=== PATIENT | male | born 1940 | race Caucasian/White ===

== ENCOUNTER 2017-12-31 21:47 | Emergency (ER) | payer MEDICARE, BC ==
[~2017-12-31] VITALS: Ht 167.6 cm; Wt 65.3 kg
[~2017-12-31 21:47] MED LIST: ACETAMINOPHEN325 M1 PO; ASA81BEC PO; ASPIRIN 81 MG; AVADART; AVELOX 400 MG400 MG PO; AVODART; AVODART0.5 MG PO; CARDIZEM; CARDIZEM CD180 MG; CARDIZEM CD180 MG PO; CO Q-10100 MG PO; COZAAR 25MG TAB25 MG; DEXILANT60 MG PO; FISH OIL; FISH OIL 1,0001 EAC5 PO; HYDROCODON-ACE1 EACH; LASIX 40 MG TAB40 M1 PO; LIVALO1 MG PO; LOPRESSOR 50 MG50 M1; LOPRESSOR25; MENS VITAMIN; NAPROSYN500 MG PO; NASAL SPRAY30 ML; NASALCROM40 MG/1 ML INH; NITROSTAT0.4 MG SL; PACERONE 200 M200 M1; PERCOCET; PLAVIX 75 MG TA75 MG PO; QVAR HFA 880 MCG/UN1 INH; SENOKOT-S1 TA1 PO; SPIRONOLACTONE25 M1 PO; TAMIFLU75 MG PO; THERA-M CAPLET1 EACH PO; TOPROL XL25 MG PO; VITAMINC500 PO; VITCB500GO PO; ZEGERID 40 MG1 EACH PO
[2017-12-31] MEDS ORDERED: [UNRECOGNIZED DRUG - OTHER] (22:01)
[2017-12-31 22:28] LABS: ABSOLUTE BASOPHILS 0.1 thou/uL (0.0-0.2); ABSOLUTE EOSINOPHILS 0.6 thou/uL (0.0-0.7); ABSOLUTE LYMPHOCYTES 1.3 thou/uL (0.8-5.3); ABSOLUTE MONOCYTES 0.7 thou/uL (0.0-1.2); ABSOLUTE NEUTROPHILS 4.5 thou/uL (1.6-8.1); EOSINOPHILS 8.6 %; HEMATOCRIT 44.6 % (42.0-52.0); HEMOGLOBIN 14.7 gm/dL (14.0-18.0); LYMPHOCYTES 17.7 %; MCH 29.9 pg (26.0-34.0); MCHC 32.9 g/dL (28.0-37.0); MCV 90.9 fL (80.0-100.0); MONOCYTES 9.9 %; MPV 10.4 fl. (7.2-11.1); NUCLEATED RBCS 0 /100WBC; PLATELET COUNT* 124 thou/uL (150-400); POLYS 62.8 %; RBC 4.91 mil/uL (4.50-6.00); RDW-CV 13.6 % (10.5-14.5); WBC 7.1 thou/uL (4.0-11.0)
[2017-12-31 22:35] LABS: ANION GAP 10 mmol/L (7-16); BUN 24 mg/dL (7-18); CALCIUM 8.6 mg/dL (8.5-10.1); CHLORIDE 104 mmol/L (98-107); CO2 29 mmol/L (21-32); CREATININE 1.2 mg/dL (0.6-1.3); GLUCOSE 141 mg/dL (70-99); POTASSIUM 4.1 mmol/L (3.5-5.1); SODIUM 143 mmol/L (136-145)
[2017-12-31 22:46] LABS: ALBUMIN 3.4 g/dL (3.4-5.0); ALKALINE PHOSPHATASE 96 U/L (46-116); NT-PRO BRAIN NAT PEPTIDE 128 pg/mL (<300); SGOT 27 U/L (15-37); SGPT 25 U/L (30-65); TOTAL BILIRUBIN 0.3 mg/dL (<0.1-1.0); TOTAL PROTEIN 7.1 g/dL (6.4-8.2); TROPONIN-I LEVEL <0.06 ng/mL (<0.06)
[2017-12-31 23:27] LABS: URINE BILIRUBIN NEGATIVE (Negative); URINE BLOOD NEGATIVE (Negative); URINE CLARITY CLEAR; URINE COLOR YELLOW; URINE GLUCOSE-RANDOM NEGATIVE (Negative); URINE KETONES NEGATIVE (Negative); URINE LEUKOCYTES-REFLEX NEGATIVE (Negative); URINE NITRITE-REFLEX NEGATIVE (Negative); URINE PROTEIN NEGATIVE (Negative); URINE SPECIFIC GRAVITY <= 1.005 (1.005-1.030); URINE UROBILINOGEN 0.2 E.U./dl (0.2-1.0)
[2018-01-01 00:14] VITALS: BP 140/63
--- NOTE | 2018-01-01 10:32 | EKG ---
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: CHAS Cohen : 1940 Requested By: Yoselin Love Order Number: [id number] MD: Oh Yung Measurements Intervals [place] Rate: 72 P: 64 DE: 139 QRS: -67 QRSD: 133 T: 38 QT: 419 QTc: 459 Interpretive Statements Sinus rhythm left anterior fasicular block Left atrial enlargement Right bundle branch block septal infarct, age indeterminate Compared to ECG 03/02/2017 19:49:16 Myocardial infarct finding now present Electronically Signed On 01-01-2018 10:32:09 SIGNALS INTELLIGENCE ANALYST by Oh Yung [email or web address] <ELECTRONICALLY SIGNED> By: Oh Yung MD, [facility] 01/01/18 1032 17 Oh Yung MD, [facility] /EPI
== END 2018-01-01 00:16 | disposition home or self-care (01) ==
LOC: M.ERS 21:47
PROVIDERS: Nurse Practitioner
DX: E86.0 Dehydration (principal); R42 Dizziness and giddiness; E78.5 Hyperlipidemia, unspecified; I10 Essential (primary) hypertension; K21.9 Gastro-esophageal reflux disease without esophagitis; I25.10 Atherosclerotic heart disease of native coronary artery without angina pectoris; Z86.73 Personal history of transient ischemic attack (TIA), and cerebral infarction without residual deficits; Z95.1 Presence of aortocoronary bypass graft; Z88.0 Allergy status to penicillin; Z88.2 Allergy status to sulfonamides; Z88.1 Allergy status to other antibiotic agents; Z88.8 Allergy status to other drugs, medicaments and biological substances; Z95.5 Presence of coronary angioplasty implant and graft; Z85.51 Personal history of malignant neoplasm of bladder

== ENCOUNTER → 2018-02-12 | Outpatient (CLI) | payer MEDICARE, BC ==
[~2018-02-12] MED LIST changes: +[UNRECOGNIZED DRUG - OTHER]
== END ==
LOC: M.ULTRA 08:08
DX: I73.9 Peripheral vascular disease, unspecified (principal); I70.90 Unspecified atherosclerosis; I10 Essential (primary) hypertension; E78.5 Hyperlipidemia, unspecified

== ENCOUNTER → 2018-03-19 | Outpatient (CLI) | payer MEDICARE, BC ==
[2018-03-19 07:28] LABS: HEMATOCRIT 46.2 % (42.0-52.0); HEMOGLOBIN 15.2 gm/dL (14.0-18.0); MCH 29.9 pg (26.0-34.0); MCV 90.8 fL (80.0-100.0); MPV 10.3 fl. (7.2-11.1); RBC 5.08 mil/uL (4.50-6.00); WBC 6.7 thou/uL (4.0-11.0)
[2018-03-19 07:41] LABS: ALBUMIN 3.6 g/dL (3.4-5.0); ALKALINE PHOSPHATASE 85 U/L (46-116); ANION GAP 4 mmol/L (7-16); BUN 16 mg/dL (7-18); CHLORIDE 104 mmol/L (98-107); CHOLESTEROL 110 mg/dL (<200); CO2 32 mmol/L (21-32); CREATININE 1.2 mg/dL (0.6-1.3); GLUCOSE 96 mg/dL (70-99); HDL CHOLESTEROL 51 mg/dL (>40); LDL CHOLESTEROL 43 mg/dL (<100); POTASSIUM 4.1 mmol/L (3.5-5.1); SERUM ASSESSMENT Clear; SGOT 28 U/L (15-37); SGPT 29 U/L (30-65); SODIUM 140 mmol/L (136-145); TC:HDL 2.2 Ratio (Not establshd); TOTAL BILIRUBIN 0.7 mg/dL (<0.1-1.0); TOTAL PROTEIN 7.3 g/dL (6.4-8.2); TRIGLYCERIDE 82 mg/dL (<150); VLDL 16 mg/dL (<40)
== END ==
LOC: M.LAB 07:10
PROVIDERS: Family Medicine
DX: I25.10 Atherosclerotic heart disease of native coronary artery without angina pectoris (principal); E78.5 Hyperlipidemia, unspecified; E78.00 Pure hypercholesterolemia, unspecified

== ENCOUNTER 2018-04-18 04:08 | Emergency (ER) | payer MEDICARE, BC ==
[~2018-04-18] VITALS: Ht 167.6 cm; Wt 62.6 kg
[2018-04-18 04:49] LABS: ABSOLUTE EOSINOPHILS 0.6 thou/uL (0.0-0.7); ABSOLUTE LYMPHOCYTES 1.3 thou/uL (0.8-5.3); ABSOLUTE MONOCYTES 0.7 thou/uL (0.0-1.2); ABSOLUTE NEUTROPHILS 4.7 thou/uL (1.6-8.1); BASOPHILS 0.6 %; EOSINOPHILS 7.7 %; HEMATOCRIT 44.7 % (42.0-52.0); HEMOGLOBIN 14.7 gm/dL (14.0-18.0); MCH 29.9 pg (26.0-34.0); MCV 90.7 fL (80.0-100.0); MONOCYTES 10.1 %; MPV 10.2 fl. (7.2-11.1); NUCLEATED RBCS 0 /100WBC; PLATELET COUNT* 135 thou/uL (150-400); POLYS 63.6 %; RBC 4.92 mil/uL (4.50-6.00); RDW-CV 13.8 % (10.5-14.5); WBC 7.3 thou/uL (4.0-11.0)
[2018-04-18 04:56] LABS: ANION GAP 4 mmol/L (7-16); BUN 21 mg/dL (7-18); CALCIUM 8.7 mg/dL (8.5-10.1); CHLORIDE 106 mmol/L (98-107); CO2 29 mmol/L (21-32); GLUCOSE 99 mg/dL (70-99); POTASSIUM 4.1 mmol/L (3.5-5.1); SODIUM 139 mmol/L (136-145)
[2018-04-18 05:03] LABS: ALBUMIN 3.5 g/dL (3.4-5.0); ALKALINE PHOSPHATASE 101 U/L (46-116); SGOT 24 U/L (15-37); SGPT 22 U/L (30-65); TOTAL BILIRUBIN 0.3 mg/dL (<0.1-1.0); TOTAL PROTEIN 7.1 g/dL (6.4-8.2); TROPONIN-I LEVEL <0.06 ng/mL (<0.06)
[2018-04-18 05:51] VITALS: BP 152/86
--- NOTE | 2018-04-18 14:33 | EKG ---
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: KAYLYN : 1940 Requested By: Hailey Valencia Order Number: [id number] MD: Vincent Davison Measurements Intervals [place] Rate: 69 P: 70 MA: 149 QRS: -65 QRSD: 132 T: 28 QT: 397 QTc: 426 Interpretive Statements Sinus rhythm Possible left atrial enlargement RBBB and LAFB Compared to ECG 12/31/2017 22:18:18 No significant changes noted Electronically Signed On 04-18-2018 14:32:46 CDT by Vincent Davison [email or web address] <ELECTRONICALLY SIGNED> By: Vincent Davison MD, [facility] 04/18/18 1432 1 1 Vincent Davison MD, [facility] /EPI
== END 2018-04-18 05:53 | disposition home or self-care (01) ==
LOC: M.ERS 04:08
PROVIDERS: Personal Emergency Response Attendant
DX: R00.2 Palpitations (principal); I10 Essential (primary) hypertension; E78.5 Hyperlipidemia, unspecified; K21.9 Gastro-esophageal reflux disease without esophagitis; I25.10 Atherosclerotic heart disease of native coronary artery without angina pectoris; Z86.73 Personal history of transient ischemic attack (TIA), and cerebral infarction without residual deficits; Z88.0 Allergy status to penicillin; Z88.2 Allergy status to sulfonamides; Z88.8 Allergy status to other drugs, medicaments and biological substances; Z88.1 Allergy status to other antibiotic agents

== ENCOUNTER → 2018-06-15 | Outpatient (CLI) | payer MEDICARE, BC ==
--- NOTE | 2018-06-15 15:23 | EXE ---
[place] [address] STRESS ECHOCARDIOGRAM Name: DAVE BURRELL Room: [facility]#: [id number] Admission: 06/15/18 Attend Phys: Oh Yung MD Discharge: Date of : 42 Date of Service: 06/15/18 1523 Report #: [id number] THIS REPORT FOR: //name// APPROVED REPORT Study performed: 06/15/2018 11:18:32 Exam: Stress Echocardiogram Indication: CAD Patient Location: Out-Patient Stress Nurse: Stephanie Puenet RN Supervising Physician: Rafa Yuan MD Ht: 5 ft 6 in HR: 68 bpm BP: 161/86 mmHg Medical History Medical History: CAD, CABG, PCI Cardiac Risk Factors: Hyperlipidemia, HTN Procedure The patient underwent an Exercise Stress Test using the Paul Protocol. Blood pressure, heart rate, and EKG were monitored. An Echocardiogram was performed by loader technician in four stages in quad fashion. At peak stress, four selected images were obtained and placed side by side with resting images for comparison. Stress Test Details Stress Test: Exercise stress testing was performed using a Paul protocol. HR Resting HR: 68 bpm Max Heart Rate (APMHR): 143 bpm Max HR Achieved: 148 bpm Target HR (85% APMHR): 121 bpm % of APMHR: 103 Recovery HR: 83 bpm HR response to stress: Normal HR response to stress BP Resting BP: 161/86 mmHg Max BP: 194/86 mmHg Recovery BP: 153/91 mmHg ECG Resting ECG: Sinus Rhythm, RBBB Stress ECG: [place] [address] STRESS ECHOCARDIOGRAM Name: DAVE BURRELL Room: [facility]#: [id number] Admission: 06/15/18 Attend Phys: Oh Yung MD Discharge: Date of : 42 Date of Service: 06/15/18 1523 Report #: [id number] Clinical Reason for Termination: Completed protocol, Maximal effort Exercise duration: 10 min 20 sec Highest Stage Achieved: Stage 4: 4.2 mph at 16% grade. Exercise capacity: 12.34 METs Pre-Stress Echo The resting Echocardiogram showed normal left ventricular contractility with an estimated Ejection Fraction of about 55-60%. Normal wall motion in all segments on baseline images. Post-Stress Echo The stress Echocardiogram showed normal left ventricular contractility with an estimated Ejection Fraction of about 65-70%. Normal augmentation of wall motion in all segments on post stress images. Conclusion Clinical Response: Non-ischemic Exercise Capacity: Superior Stress ECG Response: Non-ischemic Stress Echo Images: Non-ischemic Other Information Study Quality: Good <ELECTRONICALLY SIGNED> By: Rafa Yuan MD, [facility] 06/15/18 1523 1523 1523 Rafa Yuan MD, [facility] /INF
== END ==
LOC: M.CRD 10:49
DX: I25.10 Atherosclerotic heart disease of native coronary artery without angina pectoris (principal); Z95.1 Presence of aortocoronary bypass graft; Z98.61 Coronary angioplasty status

== ENCOUNTER 2018-08-22 02:54 | Inpatient (IN) | payer MEDICARE, BC ==
[2018-08-22] VITALS (10 sets, daily range): BP systolic 148–193; BP diastolic 75–96
[~2018-08-22] VITALS: Ht 170.2 cm; Wt 63.5 kg
[2018-08-22 03:15] LABS: ABSOLUTE BASOPHILS 0.1 thou/uL (0.0-0.2); ABSOLUTE EOSINOPHILS 0.6 thou/uL (0.0-0.7); ABSOLUTE MONOCYTES 0.8 thou/uL (0.0-1.2); ABSOLUTE NEUTROPHILS 6.3 thou/uL (1.6-8.1); BASOPHILS 1.1 %; HEMATOCRIT 47.2 % (42.0-52.0); HEMOGLOBIN 15.6 gm/dL (14.0-18.0); LYMPHOCYTES 20.6 %; MCH 29.9 pg (26.0-34.0); MCV 90.7 fL (80.0-100.0); MONOCYTES 7.7 %; MPV 9.6 fl. (7.2-11.1); NUCLEATED RBCS 0 /100WBC; PLATELET COUNT* 144 thou/uL (150-400); POLYS 64.6 %; RDW-CV 13.5 % (10.5-14.5); WBC 9.8 thou/uL (4.0-11.0)
[2018-08-22 03:23] LABS: ANION GAP 6 mmol/L (7-16); BUN 16 mg/dL (7-18); CALCIUM 8.9 mg/dL (8.5-10.1); CHLORIDE 103 mmol/L (98-107); CO2 31 mmol/L (21-32); CREATININE 1.2 mg/dL (0.6-1.3); GLUCOSE 105 mg/dL (70-99); POTASSIUM 3.3 mmol/L (3.5-5.1); SODIUM 140 mmol/L (136-145)
[2018-08-22 03:30] LABS: ALBUMIN 3.9 g/dL (3.4-5.0); ALKALINE PHOSPHATASE 92 U/L (46-116); LIPASE 147 U/L (73-393); SGOT 25 U/L (15-37); SGPT 28 U/L (30-65); TOTAL BILIRUBIN 0.4 mg/dL (<0.1-1.0); TOTAL PROTEIN 7.6 g/dL (6.4-8.2); TROPONIN-I LEVEL <0.06 ng/mL (<0.06)
[2018-08-22 03:45] LABS: URINE BILIRUBIN NEGATIVE (Negative); URINE BLOOD NEGATIVE (Negative); URINE CLARITY CLEAR; URINE COLOR YELLOW; URINE GLUCOSE-RANDOM NEGATIVE (Negative); URINE KETONES NEGATIVE (Negative); URINE LEUKOCYTES-REFLEX NEGATIVE (Negative); URINE NITRITE-REFLEX NEGATIVE (Negative); URINE PROTEIN NEGATIVE (Negative); URINE UROBILINOGEN 0.2 E.U./dl (0.2-1.0)
[2018-08-22 05:50] LABS: APTT 28.5 Seconds (25.0-31.3)
[2018-08-22 07:22] LABS: CALCIUM 8.9 mg/dL (8.5-10.1); MAGNESIUM 1.8 mg/dL (1.8-2.4); POTASSIUM 3.7 mmol/L (3.5-5.1)
[2018-08-22 08:33] LABS: HEMOGLOBIN 15.5 gm/dL (14.0-18.0)
--- NOTE | 2018-08-22 15:02 | EKG ---
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
[2018-08-23] VITALS (13 sets, daily range): BP systolic 125–157; BP diastolic 70–87
[2018-08-23 02:57] LABS: HEMATOCRIT 45.5 % (42.0-52.0); HEMOGLOBIN 14.7 gm/dL (14.0-18.0)
[2018-08-23 03:10] LABS: CALCIUM 8.8 mg/dL (8.5-10.1); POTASSIUM 3.8 mmol/L (3.5-5.1)
[2018-08-23 10:59] LABS: HEMATOCRIT 49.2 % (42.0-52.0); HEMOGLOBIN 16.2 gm/dL (14.0-18.0)
[2018-08-23 16:17] LABS: HEMATOCRIT 48.2 % (42.0-52.0); HEMOGLOBIN 15.9 gm/dL (14.0-18.0)
[2018-08-23 22:48] LABS: HEMATOCRIT 48.7 % (42.0-52.0)
[2018-08-24 02:14] VITALS: BP 155/83
[2018-08-24 04:07] LABS: HEMATOCRIT 48.1 % (42.0-52.0); HEMOGLOBIN 15.7 gm/dL (14.0-18.0)
[2018-08-24 05:55] LABS: HEMATOCRIT 47.6 % (42.0-52.0); HEMOGLOBIN 15.7 gm/dL (14.0-18.0); MCH 29.8 pg (26.0-34.0); MCV 90.3 fL (80.0-100.0); MPV 10.1 fl. (7.2-11.1); RBC 5.27 mil/uL (4.50-6.00); RDW-CV 13.7 % (10.5-14.5); WBC 9.4 thou/uL (4.0-11.0)
[2018-08-24 07:58] LABS: HEMATOCRIT 48.2 % (42.0-52.0); HEMOGLOBIN 15.9 gm/dL (14.0-18.0)
[2018-08-24 08:00] VITALS: BP 168/72
[2018-08-24 10:43] LABS: HEMATOCRIT 50.3 % (42.0-52.0); HEMOGLOBIN 16.5 gm/dL (14.0-18.0)
[2018-08-24 15:22] VITALS: BP 155/83
[2018-08-24 16:23] LABS: HEMOGLOBIN 15.5 gm/dL (14.0-18.0)
[2018-08-24 22:42] LABS: HEMATOCRIT 44.1 % (42.0-52.0); HEMOGLOBIN 14.7 gm/dL (14.0-18.0)
[2018-08-25] VITALS: BP 156/82
[2018-08-25 04:00] VITALS: BP 122/69
[2018-08-25 05:09] LABS: HEMATOCRIT 45.2 % (42.0-52.0); HEMOGLOBIN 14.9 gm/dL (14.0-18.0)
[2018-08-25 12:34] VITALS: BP 113/53
[2018-08-25 16:00] VITALS: BP 125/63
[2018-08-25 20:08] VITALS: BP 114/57
[2018-08-26] VITALS: BP 122/68
[2018-08-26 04:00] VITALS: BP 141/76
[2018-08-26 11:02] VITALS: BP 129/57
--- NOTE | 2018-09-03 19:14 | EEG ---
[address] [address] EEG STUDY REPORT Name: DAVE BURRELL Room: [address] IN M.R.#: [id number] Admission: 08/22/18 Attend Phys: Hakeem Lopez, Discharge: 08/26/18 Date of : 42 Report #: [id number] THIS REPORT FOR: //name// CC: Chacehenri Peace Hakeem Lopez DATE OF SERVICE: 08/26/2018 This patient is being evaluated for altered mental status. EEG was done by placing the electrodes by standard 10/20 system of electrode placement. Both referential and sequential montages were used for recording. Background activity in this patient's EEG is about 10 Hz and 30 microvolt. It is a symmetrical activity. The patient went to sleep that is associated with bilateral slowing and vertex sharp waves. Photic stimulation is unremarkable. Throughout the record, no active epileptiform activity was noticed. IMPRESSION: This patient's EEG is within normal limits. Thank you very much for this referral. <ELECTRONICALLY SIGNED> By: Torey Hodges MD 09/03/18 1914 1418 1451Pyajaira Hodges MD /nt
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
== END 2018-08-26 13:42 | disposition home or self-care (01) | DRG 393 ==
LOC: M.ERS 02:54 → M.ICU 05:40 → M.TBA-ER 05:40 → M.ICU 06:13 → M.2W 08-24 15:37
PROVIDERS: Family Medicine; Internal Medicine; Surgery Vascular Surgery; ADMIT Family Medicine
DX: K66.1 Hemoperitoneum (principal); I77.72 Dissection of iliac artery; G45.9 Transient cerebral ischemic attack, unspecified; D68.2 Hereditary deficiency of other clotting factors; S36.528A Contusion of other part of colon, initial encounter; I71.4 Abdominal aortic aneurysm, without rupture; I72.3 Aneurysm of iliac artery; K21.9 Gastro-esophageal reflux disease without esophagitis; I25.10 Atherosclerotic heart disease of native coronary artery without angina pectoris; S30.1XXA Contusion of abdominal wall, initial encounter; G47.50 Parasomnia, unspecified; I10 Essential (primary) hypertension; E78.5 Hyperlipidemia, unspecified; Z86.73 Personal history of transient ischemic attack (TIA), and cerebral infarction without residual deficits; Z85.51 Personal history of malignant neoplasm of bladder; Z95.5 Presence of coronary angioplasty implant and graft; Z95.1 Presence of aortocoronary bypass graft; Z88.1 Allergy status to other antibiotic agents; Z88.0 Allergy status to penicillin; Z88.2 Allergy status to sulfonamides; Z88.8 Allergy status to other drugs, medicaments and biological substances; Z82.49 Family history of ischemic heart disease and other diseases of the circulatory system; Z28.21 Immunization not carried out because of patient refusal; Z79.899 Other long term (current) drug therapy; X58.XXXA Exposure to other specified factors, initial encounter; Y93.89 Activity, other specified; Y92.89 Other specified places as the place of occurrence of the external cause; Y99.8 Other external cause status

== ENCOUNTER 2018-08-30 18:42 | Emergency (ER) | payer MEDICARE, BC ==
[~2018-08-30] VITALS: Ht 167.6 cm; Wt 62.6 kg
[2018-08-30 19:42] LABS: URINE BILIRUBIN NEGATIVE (Negative); URINE BLOOD NEGATIVE (Negative); URINE CLARITY CLEAR; URINE COLOR YELLOW; URINE GLUCOSE-RANDOM NEGATIVE (Negative); URINE KETONES NEGATIVE (Negative); URINE LEUKOCYTES-REFLEX NEGATIVE (Negative); URINE NITRITE-REFLEX NEGATIVE (Negative); URINE PROTEIN NEGATIVE (Negative); URINE SPECIFIC GRAVITY 1.015 (1.005-1.030); URINE UROBILINOGEN 0.2 E.U./dl (0.2-1.0)
[2018-08-30 20:06] LABS: HEMATOCRIT 41.8 % (42.0-52.0); HEMOGLOBIN 13.7 gm/dL (14.0-18.0); MCH 29.8 pg (26.0-34.0); MCHC 32.8 g/dL (28.0-37.0); MCV 90.8 fL (80.0-100.0); MPV 9.4 fl. (7.2-11.1); NUCLEATED RBCS 0 /100WBC; PLATELET COUNT* 162 thou/uL (150-400); RBC 4.61 mil/uL (4.50-6.00); RDW-CV 13.7 % (10.5-14.5)
[2018-08-30 20:10] LABS: ANION GAP 1 mmol/L (7-16); BUN 19 mg/dL (7-18); CALCIUM 8.6 mg/dL (8.5-10.1); CHLORIDE 104 mmol/L (98-107); CO2 33 mmol/L (21-32); CREATININE 1.2 mg/dL (0.6-1.3); GLUCOSE 109 mg/dL (70-99); SODIUM 138 mmol/L (136-145)
[2018-08-30 20:24] LABS: ALBUMIN 3.2 g/dL (3.4-5.0); ALKALINE PHOSPHATASE 80 U/L (46-116); SGOT 18 U/L (15-37); SGPT 18 U/L (30-65); TOTAL BILIRUBIN 0.6 mg/dL (<0.1-1.0); TOTAL PROTEIN 6.9 g/dL (6.4-8.2); TROPONIN-I LEVEL <0.06 ng/mL (<0.06)
[2018-08-30 20:37] LABS: ABSOLUTE EOSINOPHILS 0.8 thou/uL (0.0-0.7); ABSOLUTE MONOCYTES 0.5 thou/uL (0.0-1.2); ABSOLUTE NEUTROPHILS 5.8 thou/uL (1.6-8.1)
[2018-08-30 20:38] LABS: PLATELET ESTIMATE ADEQUATE
[2018-08-30 22:45] VITALS: BP 166/7
--- NOTE | 2018-08-31 11:14 | EKG ---
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 Operator: Ana NEVAREZ : 1940 Requested By: Hailey Valencia Order Number: [id number] MD: Pedro Pablo Alcantara Measurements Intervals [place] Rate: 73 P: 62 WI: 143 QRS: -56 QRSD: 126 T: 24 QT: 401 QTc: 442 Interpretive Statements Sinus rhythm RBBB and LAFB Baseline wander in lead(s) III Compared to ECG 08/22/2018 03:31:37 No significant changes Electronically Signed On 08-31-2018 11:14:20 CDT by Pedro Pablo Alcantara [email or web address] <ELECTRONICALLY SIGNED> By: Pedro Pablo Alcantara MD, [facility]ACC 08/31/18 1114 53 53 Pedro Pablo Alcantara MD, FAC /EPI
== END 2018-08-30 22:45 | disposition home or self-care (01) ==
LOC: M.ERS 18:42
PROVIDERS: Nurse Practitioner Family; Personal Emergency Response Attendant
DX: R19.04 Left lower quadrant abdominal swelling, mass and lump (principal); I10 Essential (primary) hypertension; E78.5 Hyperlipidemia, unspecified; K21.9 Gastro-esophageal reflux disease without esophagitis; I25.810 Atherosclerosis of coronary artery bypass graft(s) without angina pectoris; Z85.51 Personal history of malignant neoplasm of bladder; Z88.0 Allergy status to penicillin; Z88.2 Allergy status to sulfonamides; Z88.1 Allergy status to other antibiotic agents; Z88.8 Allergy status to other drugs, medicaments and biological substances

== ENCOUNTER 2019-08-02 21:37 | Observation (INO) | payer MEDICARE, BC ==
[~2019-08-02] VITALS: Ht 167.6 cm; Wt 61.7 kg
[~2019-08-02 21:37] MED LIST changes: +NASALCROM26 ML; -NASALCROM40 MG/1 ML INH
[2019-08-02 21:40] VITALS: BP 205/86
[2019-08-02 21:58] LABS: ABSOLUTE EOSINOPHILS 0.4 thou/uL (0.0-0.7); ABSOLUTE LYMPHOCYTES 1.2 thou/uL (0.8-5.3); ABSOLUTE MONOCYTES 0.7 thou/uL (0.0-1.2); ABSOLUTE NEUTROPHILS 4.1 thou/uL (1.6-8.1); BASOPHILS 0.7 %; EOSINOPHILS 6.5 %; HEMATOCRIT 43.9 % (42.0-52.0); HEMOGLOBIN 14.7 gm/dL (14.0-18.0); LYMPHOCYTES 18.5 %; MCH 30.2 pg (26.0-34.0); MCHC 33.6 g/dL (28.0-37.0); MCV 89.9 fL (80.0-100.0); MONOCYTES 10.8 %; MPV 10.2 fl. (7.2-11.1); NUCLEATED RBCS 0 /100WBC; PLATELET COUNT* 125 thou/uL (150-400); POLYS 63.5 %; RBC 4.88 mil/uL (4.50-6.00); RDW-CV 13.8 % (10.5-14.5); WBC 6.5 thou/uL (4.0-11.0)
[2019-08-02 22:05] LABS: ANION GAP 8 mmol/L (7-16); APTT 26.9 Seconds (25.0-31.3); BUN 24 mg/dL (7-18); CALCIUM 8.9 mg/dL (8.5-10.1); CHLORIDE 105 mmol/L (98-107); CO2 28 mmol/L (21-32); CREATININE 1.3 mg/dL (0.6-1.3); GLUCOSE 99 mg/dL (70-99); POTASSIUM 4.3 mmol/L (3.5-5.1); SODIUM 141 mmol/L (136-145)
[2019-08-02 22:18] LABS: ALBUMIN 3.6 g/dL (3.4-5.0); ALKALINE PHOSPHATASE 94 U/L (46-116); CK-MB MASS 3.7 ng/mL (<0.5-3.6); LIPASE 138 U/L (73-393); NT-PRO BRAIN NAT PEPTIDE 171 pg/mL (<300); SGOT 27 U/L (15-37); SGPT 35 U/L (30-65); TOTAL BILIRUBIN 0.3 mg/dL (<0.1-1.0); TOTAL PROTEIN 7.2 g/dL (6.4-8.2); TROPONIN-I LEVEL <0.06 ng/mL (<0.06)
[2019-08-02 23:10] VITALS: BP 173/87
[2019-08-02] MEDS ORDERED: ASPIR 8181 MG PO (23:47)
[2019-08-02] MEDS ORDERED: REPATHA SY140 MG/1 M IM (23:47)
[2019-08-03 04:00] VITALS: BP 124/73
[2019-08-03 08:00] VITALS: BP 134/68
--- NOTE | 2019-08-03 11:17 | EKG ---
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
[2019-08-03 11:46] VITALS: BP 123/58
[2019-08-03 12:10] VITALS: BP 123/58
--- NOTE | 2019-08-05 08:16 | CON ---
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 The patient has an extensive past medical history. He had several coronary stents in the past, but eventually underwent coronary artery bypass surgery in 2010. Repeat heart catheterization in 2015 showed the CLAYTON graft had occluded, although the stent in the ramona LAD had no restenosis. He actually had a stress echocardiogram in 06/2018 here at [facility] as an outpatient that showed no evidence of ischemia and he denied any chest pain. Ejection fraction was 70%. The patient works out on an almost daily basis. 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 He states that yesterday he felt his heart skipping. He came to the Emergency Room and was admitted. Denies any recent chest pain, shortness of breath, syncope, edema, fever or cough. He does note that after his bypass surgery in 2010, he had an episode of atrial fibrillation; he is actually on amiodarone for about 6 months. PAST MEDICAL HISTORY: Otherwise significant for previous placement of an abdominal aortic aneurysm stent graft. He has had previous resection of a bladder cancer. He has a history of hypertension and hyperlipidemia. MEDICATIONS: Include aspirin, Repatha injections once a month since he cannot tolerate statin drugs, metoprolol. He cannot tolerate RACHEL inhibitors. ALLERGIES: HE HAS INTOLERANCE TO SULFA DRUGS AND TETRACYCLINE. FAMILY HISTORY: Negative for heart disease. SOCIAL HISTORY: He is . He and his live in [place]. Quit smoking years ago. No alcohol abuse. REVIEW OF SYSTEMS: He has had no history of stroke, asthma. He has a lot of GERD. No kidney disease. No psychiatric illness. No chronic skin condition. PHYSICAL EXAMINATION: GENERAL: Revealed an elderly male, lying in bed, appeared in no distress. VITAL SIGNS: Blood pressure was 130/60, pulse 60. [place] [address] CONSULTATION Name: DAVE BURRELL [address] [id number] Admission: 08/02/19 Attend Phys: Marilynn Madison Discharge: 08/03/19 Date of : 42 Report #: [id number] HEENT: He was anicteric. Conjunctivae are pink. Mucous membranes moist. NECK: Veins not distended. No carotid bruits. CHEST: Clear to auscultation. CARDIOVASCULAR: Regular rate and rhythm. ABDOMEN: Soft. EXTREMITIES: Had no edema. SKIN: Warm and dry. NEUROLOGIC: Nonfocal. LYMPH: No adenopathy. MUSCULOSKELETAL: No joint effusion. DIAGNOSTIC DATA: His ECG last night showed a sinus rhythm with left anterior fascicular block and right bundle-branch block. There were no ST or T-wave changes noted. On the monitor last night, he was in sinus rhythm, no significant arrhythmia. His workup last night, he had a portable chest x-ray in the Emergency Room that showed evidence of previous sternotomy, tortuous aorta, evidence of an aortic stent graft. LABORATORY WORK: Sodium 141, potassium was 4.3, BUN is 21, creatinine 1.3. His liver function studies were normal. Troponins all 0.06. BNP 171. His white blood cell count was 6.5, hemoglobin 14.7. IMPRESSION AND RECOMMENDATIONS: 1. Palpitations. No arrhythmia noted. I would continue the patient's beta anahi. If he has persistent palpitations, I would consider sending the patient 30-day event recorder to rule out arrhythmia. 2. Previous episode of atrial fibrillation following bypass surgery. No clinical recurrences. 3. Previous placement of an abdominal aortic aneurysm stent graft. The patient is followed by Dr. Green. 4. Coronary artery disease. No significant angina. We will continue aspirin. 5. Hypertension. The patient is on a beta anahi. 6. History of bladder cancer. <ELECTRONICALLY SIGNED> By: Oh Yung MD, [facility] 08/05/19 0816 0921 [id number] Yung MD, FAC /nt
== END 2019-08-03 13:00 | disposition home or self-care (01) ==
LOC: M.ERS 21:37 → M.2W 22:42 → M.TBA-ER 22:42 → M.2W 22:42
PROVIDERS: Family Medicine; ADMIT Internal Medicine
DX: R00.2 Palpitations (principal); K21.0 Gastro-esophageal reflux disease with esophagitis; I10 Essential (primary) hypertension; I25.10 Atherosclerotic heart disease of native coronary artery without angina pectoris; I71.4 Abdominal aortic aneurysm, without rupture; I73.9 Peripheral vascular disease, unspecified; D68.2 Hereditary deficiency of other clotting factors; C67.5 Malignant neoplasm of bladder neck; E78.5 Hyperlipidemia, unspecified; I48.91 Unspecified atrial fibrillation; Z95.1 Presence of aortocoronary bypass graft; Z86.73 Personal history of transient ischemic attack (TIA), and cerebral infarction without residual deficits; Z79.899 Other long term (current) drug therapy

== ENCOUNTER → 2019-12-26 | Outpatient (CLI) | payer MEDICARE, BC ==
[~2019-12-26] MED LIST changes: +ASPIR 8181 MG PO; +REPATHA SY140 MG/1 M IM
[2019-12-26 08:56] LABS: ALBUMIN 3.7 g/dL (3.4-5.0); ALKALINE PHOSPHATASE 91 U/L (46-116); ANION GAP 5 mmol/L (7-16); BUN 15 mg/dL (7-18); CALCIUM 8.7 mg/dL (8.5-10.1); CHLORIDE 108 mmol/L (98-107); CHOLESTEROL 126 mg/dL (<200); CO2 31 mmol/L (21-32); CREATININE 1.2 mg/dL (0.6-1.3); GLUCOSE 95 mg/dL (70-99); HDL CHOLESTEROL 57 mg/dL (>40); LDL CHOLESTEROL 57 mg/dL (<100); POTASSIUM 4.5 mmol/L (3.5-5.1); SERUM ASSESSMENT Clear; SGOT 29 U/L (15-37); SGPT 27 U/L (30-65); SODIUM 144 mmol/L (136-145); TC:HDL 2.2 Ratio (Not establshd); TOTAL BILIRUBIN 0.9 mg/dL (<0.1-1.0); TOTAL PROTEIN 7.7 g/dL (6.4-8.2); TRIGLYCERIDE 62 mg/dL (<150); VLDL 12 mg/dL (<40)
== END ==
LOC: M.LAB 07:22
DX: E78.00 Pure hypercholesterolemia, unspecified (principal); E55.9 Vitamin D deficiency, unspecified

== ENCOUNTER → 2020-04-23 | Outpatient (CLI) | payer MEDICARE, BC ==
--- NOTE | 2020-04-23 16:39 | CARDNUC ---
[place] [address] CARDIAC NUCLEAR IMAGING REPORT Name: PEDRO LUIS BURRELL Room: [facility]#: [id number] Admission: 04/23/20 Attend Phys: Oh Yung MD Discharge: Date of : 42 Date of Service: 04/23/20 1638 Report #: [id number] THIS REPORT FOR: cc: Chace Peace Theodore M. DO Park,Vincent Bailon MD ~ APPROVED REPORT Imaging Protocol: Rest Tc-99m/Stress Tc-99m 1 day Study performed: 04/23/2020 14:28:46 Indication: Abnormal EKG, Chest pain, Dyspnea. Patient Location: Out-Patient Stress Tech: Josette Chavarria Stress Nurse: Elizabeth Howard R.N. Ht: 5 ft 6 in Wt: 140 lbs BSA: 1.72 m2 BMI: 22.59 Medical History Medical History: Angina, CAD s/p CABG, CAD s/p stent, Carotid artery disease, HTN, Hyperlipidemia, RBBB, SOB, Stroke/TIA, LAFB, PVC's, AAA stent/repair, Lightheadedness, Former smoker, arthritis. Medications: Metoprolol, Repatha, ASA 81 Mg, NTG. Allergies: Sulfa ABT, Tetracycline. Cardiac Risk Factors: Age, FHX of CAD, HTN, Hyperlipidemia, SOB, Past Smoker, AAA stent, LAFB, RBBB. Previous Cardiac Procedures: PCI, CABG. Pretest Chest Pain Characteristics: No chest pain Exercise History: Physically active Physical Disabilities: Age related, arthritis. Meds Held (24 hrs): Metoprolol, NTG. Resting Data Rest SPECT myocardial perfusion imaging was performed in supine position 30 minutes following the intravenous injection of 10.8 mCi of Tc-99m Sestamibi. Time of rest injection: 12:45 The images were gated to evaluate regional wall motion and calculate left ventricular ejection fraction. Administration Route: IV Administration Site: Right [place] [address] CARDIAC NUCLEAR IMAGING REPORT Name: PEDRO LUIS BURRELL Room: [facility]#: [id number] Admission: 04/23/20 Attend Phys: Oh Yung MD Discharge: Date of : 42 Date of Service: 04/23/20 1638 Report #: [id number] At peak stress, the patient was injected intravenously with 34.2mCi of Tc-99m Sestamibi. Time of stress injection: 14:40 Administration Route: IV Administration Site: Right Arm Heart Rate at time of stress injection: 179 bpm. Gated Stress SPECT was performed 30 minutes after stress injection. The images were gated to evaluate regional wall motion and calculate left ventricular ejection fraction. Stress Test Details Stress Test: Exercise stress testing was performed using a Paul protocol. HR Max Heart Rate (APMHR): 141 bpm Resting HR: 77 bpm Target HR (85% APMHR): 119 bpm Max HR Achieved: 179 bpm % of APMHR: 126 Recovery HR: 104 bpm BP Resting BP: 188/102 mmHg Max BP: 223/114 mmHg Recovery BP: 142/99 mmHg ECG Resting ECG: Sinus Rhythm, RBBB Stress ECG: Sinus Rhythm, RBBB ST Change: Non-ischemic Clinical Reason for Termination: Completed protocol, Maximal effort, Patient Request. Stress Symptoms: Dyspnea. Exercise duration: 12 min 08 sec Exercise capacity: 13.55 METs Overall Exercise Capacity for Age: Superior Nurse Comments A 80 year old male presented for a Paul Protocol Nuclear Stress r/t ABN EKG, chest discomfort, dyspnea and lightheadedness. Treadmill well tolerated to beginning of stage 5. Recovery unremarkable. Patient did take his Metoprolol during recovery for his HTN. Patient was escorted by staff to Nuclear Medicine for imaging. Patient was stable and stated he felt good at that time. Exercise [place] [address] CARDIAC NUCLEAR IMAGING REPORT Name: PEDRO LUIS BURRELL Room: [facility]#: [id number] Admission: 04/23/20 Attend Phys: Oh Yung MD Discharge: Date of : 42 Date of Service: 04/23/20 1638 Report #: [id number] Study Quality Artifact: Mild Diaphragmatic artifact Study Data Post stress, the left ventricular ejection was 54%.. Perfusion There is a small area of mildly reduced uptake in the basal segment of the inferior wall which is seen on the stress images as well as the resting images. This area thickens and moves normally and is most consistent with attenuation artifact. Wall Motion Normal left ventricular wall motion. Nuclear Conclusion ECG Findings: negative for ischemia Clinical Findings: negative for ischemia Nuclear Findings: negative for ischemia Exercise Capacity: normal Left Ventricular Function: normal Risk Study: low This study is of low probability for inducible ischemia or prior infarct. Normal global and segmental LV systolic function. Artifact: Mild Diaphragmatic artifact <ELECTRONICALLY SIGNED> By: Vincent Biswas MD 04/23/20 1638 1638 Vincent Biswas MD /INF
== END ==
LOC: M.NUC 04-17 14:05
PROVIDERS: ATTEND Internal Medicine Cardiovascular Disease
DX: I25.10 Atherosclerotic heart disease of native coronary artery without angina pectoris (principal)

== ENCOUNTER 2020-08-27 11:00 | Emergency (ER) | payer MEDICARE, BC ==
[~2020-08-27] VITALS: Ht 167.6 cm; Wt 62.6 kg
[2020-08-27 11:39] LABS: ABSOLUTE BASOPHILS 0.1 thou/uL (0.0-0.2); ABSOLUTE EOSINOPHILS 0.4 thou/uL (0.0-0.7); ABSOLUTE LYMPHOCYTES 1.2 thou/uL (0.8-5.3); ABSOLUTE MONOCYTES 0.6 thou/uL (0.0-1.2); ABSOLUTE NEUTROPHILS 5.4 thou/uL (1.6-8.1); BASOPHILS 0.7 %; EOSINOPHILS 5.3 %; HEMATOCRIT 45.8 % (42.0-52.0); HEMOGLOBIN 15.1 gm/dL (14.0-18.0); MCH 29.9 pg (26.0-34.0); MCV 90.6 fL (80.0-100.0); MONOCYTES 7.8 %; MPV 9.8 fl. (7.2-11.1); NUCLEATED RBCS 0 /100WBC; PLATELET COUNT* 122 thou/uL (150-400); POLYS 70.2 %; RBC 5.06 mil/uL (4.50-6.00); RDW-CV 13.8 % (10.5-14.5); WBC 7.7 thou/uL (4.0-11.0)
[2020-08-27 11:44] LABS: CREATININE 1.2 mg/dL (0.6-1.3); POTASSIUM 4.3 mmol/L (3.5-5.1)
[2020-08-27 11:45] LABS: APTT 27.7 Seconds (25.0-31.3); PROTIME 10.3 Seconds (9.20-11.50)
[2020-08-27 12:15] LABS: ALBUMIN 3.7 g/dL (3.4-5.0); CK-MB MASS 2.9 ng/mL (<0.5-3.6); TOTAL BILIRUBIN 0.6 mg/dL (<0.1-1.0); TOTAL PROTEIN 7.7 g/dL (6.4-8.2)
[2020-08-27 12:28] VITALS: BP 156/90
--- NOTE | 2020-08-27 14:44 | EKG ---
[place] [address] ELECTROCARDIOGRAM REPORT Name: PEDRO LUIS BURRELL Room: [facility]#: [id number] Admission: 08/27/20 Attend Phys: Discharge: 08/27/20 Date of : 42 Date of Service: 08/27/20 1127 Report #: [id number] THIS REPORT FOR: //name// [facility] ED Test Date: 2020-08-27 Test Time: 11:27:20 Pat Name: PEDRO LUIS BURRELL Department: Room: Gender: General Manager: [facility] : 1940 Requested By: Juan Joiner Order Number: [id number] MD: Oh Yung Measurements Intervals [place] Rate: 69 P: -7 WV: 136 QRS: 132 QRSD: 131 T: 26 QT: 416 QTc: 446 Interpretive Statements Sinus rhythm Probable left atrial enlargement RBBB and LPFB Baseline wander in lead(s) II,III,aVF Compared to ECG 08/02/2019 21:42:04 Left posterior fascicular block now present Electronically Signed On 08-27-2020 14:43:56 CDT by Oh Yung [email or web address] <ELECTRONICALLY SIGNED> By: Oh Yung MD, FACC 08/27/20 1443 1127 1127 Oh Yung MD, FACC /EPI
== END 2020-08-27 12:29 | disposition home or self-care (01) ==
LOC: M.ERS 11:00
PROVIDERS: Family Medicine
DX: G45.9 Transient cerebral ischemic attack, unspecified (principal); I10 Essential (primary) hypertension; E78.5 Hyperlipidemia, unspecified; K21.9 Gastro-esophageal reflux disease without esophagitis; I25.10 Atherosclerotic heart disease of native coronary artery without angina pectoris; Z88.0 Allergy status to penicillin; Z88.2 Allergy status to sulfonamides; Z88.6 Allergy status to analgesic agent; Z88.8 Allergy status to other drugs, medicaments and biological substances; Z86.73 Personal history of transient ischemic attack (TIA), and cerebral infarction without residual deficits; Z85.51 Personal history of malignant neoplasm of bladder; Z95.5 Presence of coronary angioplasty implant and graft; Z95.1 Presence of aortocoronary bypass graft

== ENCOUNTER → 2021-01-01 | Outpatient (CLI) | payer MEDICARE, BC | LOC: M.RAD 15:03 | PROVIDERS: ATTEND Internal Medicine | DX: M16.0 Bilateral primary osteoarthritis of hip (principal); Z85.46 Personal history of malignant neoplasm of prostate ==

== ENCOUNTER 2021-03-06 08:53 | Emergency (ER) | payer MEDICARE, BC ==
[~2021-03-06] VITALS: Ht 167.6 cm; Wt 60.8 kg
[2021-03-06 09:14] LABS: ABSOLUTE EOSINOPHILS 0.2 thou/uL (0.0-0.7); ABSOLUTE LYMPHOCYTES 0.7 thou/uL (0.8-5.3); ABSOLUTE MONOCYTES 0.5 thou/uL (0.0-1.2); ABSOLUTE NEUTROPHILS 5.3 thou/uL (1.6-8.1); BASOPHILS 0.2 %; EOSINOPHILS 3.2 %; HEMATOCRIT 47.4 % (42.0-52.0); HEMOGLOBIN 15.4 gm/dL (14.0-18.0); LYMPHOCYTES 10.2 %; MCH 29.1 pg (26.0-34.0); MCHC 32.5 g/dL (28.0-37.0); MCV 89.5 fL (80.0-100.0); MONOCYTES 7.2 %; NUCLEATED RBCS 0 /100WBC; PLATELET COUNT* 124 thou/uL (150-400); POLYS 79.2 %; RDW-CV 13.6 % (10.5-14.5); WBC 6.7 thou/uL (4.0-11.0)
[2021-03-06 09:23] LABS: CALCIUM 9.4 mg/dL (8.5-10.1); CREATININE 1.2 mg/dL (0.6-1.3); POTASSIUM 4.1 mmol/L (3.5-5.1)
[2021-03-06 09:27] LABS: ALBUMIN 4.2 g/dL (3.4-5.0); TOTAL BILIRUBIN 0.9 mg/dL (<0.1-1.0); TOTAL PROTEIN 8.1 g/dL (6.4-8.2)
[2021-03-06 10:07] LABS: URINE BILIRUBIN NEGATIVE (Negative); URINE BLOOD NEGATIVE (Negative); URINE CLARITY CLEAR; URINE COLOR YELLOW; URINE GLUCOSE-RANDOM NEGATIVE (Negative); URINE KETONES NEGATIVE (Negative); URINE LEUKOCYTES-REFLEX NEGATIVE (Negative); URINE NITRITE-REFLEX NEGATIVE (Negative); URINE PROTEIN NEGATIVE (Negative); URINE UROBILINOGEN 0.2 E.U./dl (0.2-1.0)
[2021-03-06] MEDS ORDERED: ZOFRAN ODT4 MG DISSOLVE (11:34)
[2021-03-06 11:46] VITALS: BP 158/67
--- NOTE | 2021-03-06 12:48 | EKG ---
[place] [address] ELECTROCARDIOGRAM REPORT Name: PEDRO LUIS BURRELL DAVE Room: [facility]#: [id number] Admission: 03/06/21 Attend Phys: Discharge: 03/06/21 Date of : 42 Date of Service: 03/06/21 0925 Report #: [id number] THIS REPORT FOR: //name// [facility] ED Test Date: 2021-03-06 Test Time: 09:25:31 Pat Name: PEDRO LUIS BURRELL Department: Room: Gender: Minilab Operator: CD : 1940 Requested By: Juan Joiner Order Number: [id number] MD: Oh Yung Measurements Intervals [place] Rate: 62 P: 72 MS: 138 QRS: -73 QRSD: 134 T: 28 QT: 457 QTc: 464 Interpretive Statements Sinus rhythm RBBB and LAFB Compared to ECG 08/27/2020 11:27:20 Left anterior fascicular block now present Left posterior fascicular block no longer present Electronically Signed On 03-06-2021 12:48:45 CDT by Oh Yung [email or web address] <ELECTRONICALLY SIGNED> By: Oh Yung MD, [facility] 03/06/21 1248 0925 4 Oh Yung MD, [facility] /EPI
== END 2021-03-06 11:48 | disposition home or self-care (01) ==
LOC: M.ERS 08:53
PROVIDERS: Family Medicine
DX: R11.0 Nausea (principal); I10 Essential (primary) hypertension; E78.5 Hyperlipidemia, unspecified; K21.9 Gastro-esophageal reflux disease without esophagitis; Z88.0 Allergy status to penicillin; Z88.1 Allergy status to other antibiotic agents; Z88.6 Allergy status to analgesic agent; Z79.82 Long term (current) use of aspirin; Z79.899 Other long term (current) drug therapy; Z86.73 Personal history of transient ischemic attack (TIA), and cerebral infarction without residual deficits; Z95.1 Presence of aortocoronary bypass graft; Z85.51 Personal history of malignant neoplasm of bladder

== ENCOUNTER → 2021-03-13 | Outpatient (CLI) | payer MEDICARE, BC ==
[~2021-03-13] MED LIST changes: +ZOFRAN ODT4 MG DISSOLVE
[2021-03-13 06:41] LABS: ABSOLUTE EOSINOPHILS 0.4 thou/uL (0.0-0.7); ABSOLUTE LYMPHOCYTES 0.9 thou/uL (0.8-5.3); ABSOLUTE MONOCYTES 0.5 thou/uL (0.0-1.2); ABSOLUTE NEUTROPHILS 3.9 thou/uL (1.6-8.1); BASOPHILS 0.7 %; EOSINOPHILS 7.3 %; HEMATOCRIT 47.2 % (42.0-52.0); HEMOGLOBIN 15.3 gm/dL (14.0-18.0); LYMPHOCYTES 15.5 %; MCH 29.5 pg (26.0-34.0); MCHC 32.5 g/dL (28.0-37.0); MCV 90.9 fL (80.0-100.0); MONOCYTES 8.4 %; MPV 9.6 fl. (7.2-11.1); NUCLEATED RBCS 0 /100WBC; PLATELET COUNT* 133 thou/uL (150-400); POLYS 68.1 %; RDW-CV 13.9 % (10.5-14.5); WBC 5.7 thou/uL (4.0-11.0)
[2021-03-13 06:44] LABS: URINE BILIRUBIN NEGATIVE (Negative); URINE BLOOD NEGATIVE (Negative); URINE CLARITY CLEAR; URINE COLOR YELLOW; URINE GLUCOSE-RANDOM NEGATIVE (Negative); URINE KETONES NEGATIVE (Negative); URINE LEUKOCYTES NEGATIVE (Negative); URINE NITRITE NEGATIVE (Negative); URINE PROTEIN NEGATIVE (Negative); URINE UROBILINOGEN 0.2 E.U./dl (0.2-1.0)
[2021-03-13 06:57] LABS: ALBUMIN 3.7 g/dL (3.4-5.0); ALKALINE PHOSPHATASE 87 U/L (46-116); ANION GAP 6 mmol/L (7-16); BUN 18 mg/dL (7-18); CHLORIDE 104 mmol/L (98-107); CHOLESTEROL 115 mg/dL (<200); CO2 33 mmol/L (21-32); CREATININE 1.2 mg/dL (0.6-1.3); GLUCOSE 92 mg/dL (70-99); HDL CHOLESTEROL 56 mg/dL (>40); LDL CHOLESTEROL 43 mg/dL (<100); SGOT 25 U/L (15-37); SGPT 28 U/L (30-65); SODIUM 143 mmol/L (136-145); TC:HDL 2.1 Ratio (Not establshd); TOTAL BILIRUBIN 0.9 mg/dL (<0.1-1.0); TOTAL PROTEIN 7.5 g/dL (6.4-8.2); TRIGLYCERIDE 80 mg/dL (<150); VLDL 16 mg/dL (<40)
[2021-03-13 06:59] LABS: SERUM ASSESSMENT Clear
[2021-03-13 07:59] LABS: ESR (SEDRATE) 15 mm/hr (0-20)
[2021-03-14 02:06] LABS: GLYCOHEMOGLOBIN (HGB A1C) 5.5 % (4.8-5.6)
[2021-03-14 11:07] LABS: % FREE PSA 21.9 % (()); FREE PSA 0.35 ng/mL
== END ==
LOC: M.LAB 06:16
DX: Z00.00 Encounter for general adult medical examination without abnormal findings (principal); I25.810 Atherosclerosis of coronary artery bypass graft(s) without angina pectoris; I71.4 Abdominal aortic aneurysm, without rupture; C67.9 Malignant neoplasm of bladder, unspecified; K21.9 Gastro-esophageal reflux disease without esophagitis

== ENCOUNTER → 2021-05-15 | Outpatient (CLI) | payer MEDICARE, BC | LOC: M.RAD 08:01 | PROVIDERS: ATTEND Internal Medicine | DX: N28.1 Cyst of kidney, acquired (principal); R11.0 Nausea; R10.13 Epigastric pain; Z95.828 Presence of other vascular implants and grafts ==

== ENCOUNTER 2021-06-05 07:16 | Observation (INO) | payer MEDICARE, BC ==
[~2021-06-05] VITALS: Ht 167.6 cm; Wt 61.5 kg
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
[2021-06-05 07:24] VITALS: BP 184/92
[2021-06-05 07:47] LABS: ABSOLUTE EOSINOPHILS 0.3 thou/uL (0.0-0.7); ABSOLUTE LYMPHOCYTES 0.7 thou/uL (0.8-5.3); ABSOLUTE MONOCYTES 0.4 thou/uL (0.0-1.2); ABSOLUTE NEUTROPHILS 4.9 thou/uL (1.6-8.1); BASOPHILS 0.3 %; EOSINOPHILS 4.6 %; HEMATOCRIT 44.4 % (42.0-52.0); LYMPHOCYTES 10.8 %; MCH 30.5 pg (26.0-34.0); MCHC 33.8 g/dL (28.0-37.0); MCV 90.5 fL (80.0-100.0); MPV 9.2 fl. (7.2-11.1); NUCLEATED RBCS 0 /100WBC; PLATELET COUNT* 125 thou/uL (150-400); POLYS 77.3 %; RDW-CV 13.7 % (10.5-14.5); WBC 6.4 thou/uL (4.0-11.0)
[2021-06-05 08:01] LABS: APTT 27.7 Seconds (25.0-31.3); PROTIME 10.5 Seconds (9.20-11.50)
[2021-06-05 08:10] LABS: CALCIUM 8.7 mg/dL (8.5-10.1); CREATININE 1.2 mg/dL (0.6-1.3); POTASSIUM 3.9 mmol/L (3.5-5.1)
[2021-06-05 08:15] LABS: TOTAL BILIRUBIN 0.8 mg/dL (<0.1-1.0); TOTAL PROTEIN 7.5 g/dL (6.4-8.2)
[2021-06-05 12:47] VITALS: BP 155/68
--- NOTE | 2021-06-05 14:20 | EKG ---
[place] [address] ELECTROCARDIOGRAM REPORT Name: PEDRO LUIS BURRELL Room: [place] [address] ADM IN .R.#: [id number] Admission: 06/05/21 Attend Phys: Xander Virgen Discharge: Date of : 42 Date of Service: 06/05/21 0733 Report #: [id number] THIS REPORT FOR: //name// [facility] ED Test Date: 2021-06-05 Test Time: 07:33:32 Pat Name: PEDRO LUIS BURRELL Department: Room: [facility] Gender: M Software Specialist: NA : 1940 Requested By: Holden Dee Order Number: [id number] MD: Rafa Yuan Measurements Intervals [place] Rate: 66 P: 70 FL: 139 QRS: -78 QRSD: 135 T: 42 QT: 434 QTc: 455 Interpretive Statements Sinus rhythm Left atrial enlargement RBBB and LAFB Compared to ECG 03/06/2021 09:25:31 Atrial abnormality now present Electronically Signed On 06-05-2021 14:19:56 CDT by Rafa Yuan [email or web address] <ELECTRONICALLY SIGNED> By: Rafa Yuan MD, [facility] 06/05/21 1419 0733 Rafa Yuan MD, [facility] /EPI
[2021-06-05 14:42] VITALS: BP 136/64
[2021-06-06] VITALS: BP 115/41
[2021-06-06 04:00] VITALS: BP 167/84
[2021-06-06 04:36] LABS: ALBUMIN 3.4 g/dL (3.4-5.0); ALKALINE PHOSPHATASE 76 U/L (46-116); ANION GAP 2 mmol/L (7-16); BUN 25 mg/dL (7-18); CALCIUM 8.2 mg/dL (8.5-10.1); CHLORIDE 105 mmol/L (98-107); CHOLESTEROL 90 mg/dL (<200); CO2 32 mmol/L (21-32); CREATININE 1.3 mg/dL (0.6-1.3); GLUCOSE 85 mg/dL (70-99); HDL CHOLESTEROL 47 mg/dL (>40); LDL CHOLESTEROL 22 mg/dL (<100); SGOT 21 U/L (15-37); SGPT 23 U/L (30-65); SODIUM 139 mmol/L (136-145); TC:HDL 1.9 Ratio (Not establshd); TOTAL BILIRUBIN 0.5 mg/dL (<0.1-1.0); TOTAL PROTEIN 6.4 g/dL (6.4-8.2); TRIGLYCERIDE 105 mg/dL (<150); VLDL 21 mg/dL (<40)
[2021-06-06 05:06] LABS: SERUM ASSESSMENT CLEAR
[2021-06-06 08:00] VITALS: BP 172/94
[2021-06-06 12:01] VITALS: BP 137/76
[2021-06-06 15:22] VITALS: BP 137/76
--- NOTE | 2021-06-06 17:11 | 2DMMODE ---
[place] [address] 2 D/M-MODE ECHOCARDIOGRAM Name: PEDRO LUIS BURRELL Room: [address] Girish Meza#: [id number] Admission: 06/05/21 Attend Phys: Xander Virgen Discharge: 06/06/21 Date of : 42 Date of Service: 06/06/21 1711 Report #: [id number] THIS REPORT FOR: cc: Ben Ruano MD, Dean L. MD Liston, Michael J. MD [facility] ~ APPROVED REPORT Study performed: 06/06/2021 14:03:21 EXAM: Comprehensive 2D, Doppler, and color-flow Echocardiogram Patient Location: In-Patient Room #: 200 Status: routine BSA: 1.69 HR: 65 bpm Rhythm: NSR Other Information Study Quality: Good Indications CVA/TIA Echo Enhancing Agent Indication: Rule out Shunt Agent(s) / Amount(s) Used: Agitated Saline 10 cc 2D Dimensions IVSd: 11.07 (7-11mm) LVOT Diam: 20.55 (18-24mm) LVDd: 43.20 mm PWd: 9.09 (7-11mm) Ascending Ao: 30.50 (22-36mm) LVDs: 30.45 (25-40mm) Aortic Root: 31.62 mm Volumes Left Atrial Volume (Systole) LA ESV Index: 27.90 mL/m2 Aortic Valve AoV Peak Narciso.: 1.03 m/s AO Peak Gr.: 4.27 mmHg LVOT Max P.30 mmHg AO Mean Gr.: 2.31 mmHg LVOT Mean P.10 [place] [address] 2 D/M-MODE ECHOCARDIOGRAM Name: PEDRO LUIS BURRELL Room: [address] M.R.#: [id number] Admission: 06/05/21 Attend Phys: Xander Virgen Discharge: 06/06/21 Date of : 42 Date of Service: 06/06/21 1711 Report #: [id number] LVOT Max V: 0.76 m/s AO V2 VTI: 19.92 cm LVOT Mean V: 0.48 m/s GENESIS (VTI): 2.77 cm2 LVOT V1 VTI: 16.62 cm Mitral Valve E/A Ratio: 0.76 MV Decel. Time: 270.03 ms MV E Max Narciso.: 0.71 m/s MV PHT: 78.31 ms MVA (PHT): 2.81 cm2 TDI E/Lateral E': 6.45 E/Medial E': 8.88 Medial E' Narciso.: 0.08 m/s Lateral E' Narciso.: 0.11 m/s Pulmonary Valve PV Peak Narciso.: 1.08 m/s PV Peak Gr.: 4.71 mmHg Tricuspid Valve RAP Estimate: 5.00 mmHg TR Peak Gr.: 17.54 mmHg RVSP: 22.00 mmHg PA Pressure: 22.00 mmHg Left Ventricle The left ventricle is normal size. There is left ventricular systolic dyssynergy noted consistent with underlying bundle branch block. There is normal left ventricular wall thickness. Left ventricular systolic function is normal. LVEF is 55-60%. Grade I - abnormal relaxation pattern. Right Ventricle The right ventricle is normal size. The right ventricular systolic function is normal. Atria The left atrium size is normal. The interatrial septum is intact with no evidence for an atrial septal defect. The right atrium size is normal. Aortic Valve The aortic valve is normal in structure. Mild aortic regurgitation. There is no aortic valvular stenosis. Mitral Valve The mitral valve is normal in structure. [place] [address] 2 D/M-MODE ECHOCARDIOGRAM Name: BURRELLPEDRO LUIS ParisHEN Room: [address] Girish Meza#: [id number] Admission: 06/05/21 Attend Phys: Xander Virgen Discharge: 06/06/21 Date of : 42 Date of Service: 06/06/21 1711 Report #: [id number] No evidence of mitral valve stenosis. Tricuspid Valve The tricuspid valve is normal in structure. Mild tricuspid regurgitation. No pulmonary hypertension. Pulmonic Valve The pulmonary valve is normal in structure. Trace pulmonic regurgitation. Great Vessels The aortic root is normal in size. IVC is normal in size and collapses >50% with inspiration. Pericardium There is no pericardial effusion. <Conclusion> The left ventricle is normal size. There is normal left ventricular wall thickness. Left ventricular systolic function is normal. LVEF is 55-60%. Grade I - abnormal relaxation pattern. There is left ventricular systolic dyssynergy noted consistent with underlying bundle branch block. Mild aortic regurgitation. Trace mitral regurgitation. Mild tricuspid regurgitation. No pulmonary hypertension. IVC is normal in size and collapses >50% with inspiration. The interatrial septum is intact with no evidence for an atrial septal defect. <ELECTRONICALLY SIGNED> By: Vincent Davison MD, FACC 06/06/211710 10 10 Vincent Davison MD, FACC /INF
[2021-06-07 02:06] LABS: GLYCOHEMOGLOBIN (HGB A1C) 5.6 % (4.8-5.6)
== END 2021-06-06 15:50 | disposition home or self-care (01) ==
LOC: M.ERS 07:16 → M.2W 08:27 → M.TBA-ER 08:27 → M.2W 15:02
PROVIDERS: Emergency Medicine Emergency Medical Services; ADMIT Internal Medicine; ATTEND Internal Medicine
DX: R20.0 Anesthesia of skin (principal); R20.2 Paresthesia of skin; R42 Dizziness and giddiness; Z20.822 Contact with and (suspected) exposure to COVID-19; I63.9 Cerebral infarction, unspecified; I10 Essential (primary) hypertension; E78.5 Hyperlipidemia, unspecified; I25.10 Atherosclerotic heart disease of native coronary artery without angina pectoris; K21.9 Gastro-esophageal reflux disease without esophagitis; Z88.0 Allergy status to penicillin; Z88.8 Allergy status to other drugs, medicaments and biological substances; Z88.2 Allergy status to sulfonamides; Z88.1 Allergy status to other antibiotic agents; Z79.899 Other long term (current) drug therapy

== ENCOUNTER 2021-10-22 19:40 | Emergency (ER) | payer MEDICARE, BC ==
[~2021-10-22] VITALS: Ht 167.6 cm; Wt 64.0 kg
[2021-10-22 22:32] VITALS: BP 162/74
--- NOTE | 2021-10-23 13:50 | EKG ---
[place] [address] ELECTROCARDIOGRAM REPORT Name: BURRELLDAVE Knight Room: 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: Programmer Operator Numerical Control: [place] : 1940 Requested By: Myrtle Blum Order Number: [id number] MD: Rafa Yuan Measurements Intervals [place] Rate: 71 P: 77 DE: 133 QRS: -81 QRSD: 134 T: 68 QT: 419 QTc: 456 Interpretive Statements Sinus rhythm RBBB and LAFB Compared to ECG 06/05/2021 07:33:32 Atrial abnormality no longer present Electronically Signed On 10-23-2021 13:50:39 CASTING CARRIER by Rafa Yuan [email or web address] <ELECTRONICALLY SIGNED> By: Rafa Yuan MD, [facility] 10/23/21 1350 52 52 Rafa Yuan MD, [facility] /EPI
== END 2021-10-22 22:33 | disposition home or self-care (01) ==
LOC: M.ERS 19:40
DX: R19.03 Right lower quadrant abdominal swelling, mass and lump (principal); I10 Essential (primary) hypertension; E78.5 Hyperlipidemia, unspecified; K21.9 Gastro-esophageal reflux disease without esophagitis; Z88.0 Allergy status to penicillin; Z88.1 Allergy status to other antibiotic agents; Z88.6 Allergy status to analgesic agent; Z79.899 Other long term (current) drug therapy; Z86.73 Personal history of transient ischemic attack (TIA), and cerebral infarction without residual deficits; Z95.1 Presence of aortocoronary bypass graft

== ENCOUNTER 2021-10-31 15:02 | Emergency (ER) | payer MEDICARE, BC ==
[~2021-10-31] VITALS: Ht 167.6 cm; Wt 64.0 kg
[2021-10-31 15:22] LABS: URINE BILIRUBIN NEGATIVE (Negative); URINE BLOOD TRACE (Negative); URINE CLARITY CLEAR; URINE COLOR YELLOW; URINE GLUCOSE-RANDOM NEGATIVE (Negative); URINE KETONES NEGATIVE (Negative); URINE LEUKOCYTES-REFLEX NEGATIVE (Negative); URINE NITRITE-REFLEX NEGATIVE (Negative); URINE PROTEIN TRACE (Negative); URINE UROBILINOGEN 0.2 E.U./dl (0.2-1.0)
[2021-10-31 15:28] LABS: ABSOLUTE EOSINOPHILS 0.4 thou/uL (0.0-0.7); ABSOLUTE LYMPHOCYTES 0.9 thou/uL (0.8-5.3); ABSOLUTE MONOCYTES 0.6 thou/uL (0.0-1.2); ABSOLUTE NEUTROPHILS 4.5 thou/uL (1.6-8.1); BASOPHILS 0.5 %; EOSINOPHILS 6.6 %; HEMATOCRIT 45.1 % (42.0-52.0); HEMOGLOBIN 14.9 gm/dL (14.0-18.0); LYMPHOCYTES 14.6 %; MCH 29.7 pg (26.0-34.0); MCV 89.9 fL (80.0-100.0); MONOCYTES 8.7 %; MPV 9.4 fl. (7.2-11.1); NUCLEATED RBCS 0 /100WBC; PLATELET COUNT* 139 thou/uL (150-400); POLYS 69.6 %; RBC 5.02 mil/uL (4.50-6.00); RDW-CV 13.7 % (10.5-14.5); WBC 6.5 thou/uL (4.0-11.0)
[2021-10-31 15:37] LABS: CALCIUM 8.6 mg/dL (8.5-10.1); CREATININE 1.2 mg/dL (0.6-1.3); POTASSIUM 4.2 mmol/L (3.5-5.1)
[2021-10-31 15:47] LABS: ALBUMIN 3.6 g/dL (3.4-5.0); MAGNESIUM 2.2 mg/dL (1.8-2.4); TOTAL BILIRUBIN 0.6 mg/dL (<0.1-1.0); TOTAL PROTEIN 7.1 g/dL (6.4-8.2)
--- NOTE | 2021-10-31 15:47 | EKG ---
[place] [address] ELECTROCARDIOGRAM REPORT Name: DAVE BURRELL Room: [facility]#: [id number] Admission: 10/31/21 Attend Phys: Discharge: Date of : 42 Date of Service: 10/31/21 1513 Report #: [id number] THIS REPORT FOR: //name// [facility] ED Test Date: 2021-10-31 Test Time: 15:13:16 Pat Name: DAVE BURRELL Department: Room: Gender: Architecture Manager: : 1940 Requested By: Juan Joiner Order Number: [id number] MD: Oh Yung Measurements Intervals [place] Rate: 77 P: 74 [place]: 128 QRS: -78 QRSD: 134 T: 66 QT: 422 QTc: 478 Interpretive Statements Sinus rhythm Probable left atrial enlargement RBBB and LAFB Compared to ECG 10/22/2021 19:53:03 No significant changes Electronically Signed On 10-31-2021 15:47:45 PHOTOGRAPHIC DOUBLE by Oh Yung [email or web address] <ELECTRONICALLY SIGNED> By: Oh Yung MD, [facility] 10/31/21 1547 1513 1513 Oh Yung MD, [facility] /EPI
[2021-10-31 16:01] VITALS: BP 139/58
== END 2021-10-31 16:02 | disposition home or self-care (01) ==
LOC: M.ERS 15:02
PROVIDERS: Family Medicine
DX: I10 Essential (primary) hypertension (principal); E78.5 Hyperlipidemia, unspecified; I25.10 Atherosclerotic heart disease of native coronary artery without angina pectoris; K21.9 Gastro-esophageal reflux disease without esophagitis; Z86.73 Personal history of transient ischemic attack (TIA), and cerebral infarction without residual deficits; Z98.890 Other specified postprocedural states; Z95.5 Presence of coronary angioplasty implant and graft; Z79.899 Other long term (current) drug therapy; Z88.0 Allergy status to penicillin; Z88.2 Allergy status to sulfonamides; Z88.8 Allergy status to other drugs, medicaments and biological substances; Z88.1 Allergy status to other antibiotic agents

== ENCOUNTER 2021-12-27 13:31 | Emergency (ER) | payer MEDICARE, BC ==
[~2021-12-27] VITALS: Ht 167.6 cm; Wt 63.5 kg
--- NOTE | ~2021-12-27 | CON ---
[address] [address] CONSULTATION Name: DAVE BURRELL [id number] Admission: 12/27/21 Attend Phys: Discharge: 12/27/21 Date of : 42 Report #: [id number] THIS REPORT FOR: cc: Ben Ruano MD, Dean L. MD Blick, David R. MD FAC ~ cc: Ben Ruano MD DATE OF CONSULTATION: 12/27/2021 CARDIOLOGY CONSULTATION PRIMARY CARE PHYSICIAN: Scott Powell MD HISTORY OF PRESENT ILLNESS: The patient is an 81-year-old white male whom I was asked to see in the Emergency Room with chief complaint of chest pain. The patient had a previous history of coronary stent and eventually underwent coronary bypass surgery in 2010. Nuclear stress test 2 years ago showed no ischemia. Actually I just saw him in Cardiology Clinic in October. Echocardiogram last May showed an ejection fraction of 60%. He was doing well until yesterday, he was on the treadmill, then he started having some chest pain that stopped. Today, he was driving his car, felt a discomfort in his chest, felt somewhat diaphoretic, but denied any shortness of breath or nausea. He took some antacids, seemed to help. He finally drove himself to the Emergency Room and is being seen for further evaluation and treatment. He denied the pain being related to food. He has had no bleeding. Denied any fever, cough, or vomiting. Denied any trauma to his chest. There is no rash. PAST MEDICAL HISTORY: Otherwise significant for previous abdominal aortic aneurysm stent graft. He has a history of bladder cancer and had bladder surgery. He has a history of hypertension, hyperlipidemia, sleep apnea and had previous surgery. CURRENT MEDICATIONS: Consist of aspirin, Avodart, metoprolol. He takes Repatha injections. ALLERGIES: HE HAS A PREVIOUS INTOLERANCE TO SULFA DRUGS. HE COULD NOT TOLERATE STATIN DRUGS IN THE PAST. FAMILY HISTORY: Negative for heart disease. SOCIAL HISTORY: He is . He and his live in [place]. 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 He quit smoking years ago. No alcohol abuse. REVIEW OF SYSTEMS: No history of stroke. He has a history of asthma[place] [address] CONSULTATION Name: DAVE BURRELL [id number] Admission: 12/27/21 Attend Phys: Discharge: 12/27/21 Date of : 42 Report #: [id number] history of gastroesophageal reflux. No history of liver disease or kidney disease. He has sleep apnea and had previous surgery. No chronic skin condition. PHYSICAL EXAMINATION: GENERAL: Revealed an elderly male, lying in bed, appeared in no distress. VITAL SIGNS: Blood pressure 160/70, pulse 70s, afebrile. HEENT: He was anicteric. Conjunctivae pink. Mucous membranes moist. NECK: Veins do not distended. No carotid bruits. CHEST: Clear to auscultation. CARDIAC: Regular rate and rhythm. ABDOMEN: Soft. EXTREMITIES: Had no edema. Posterior tibial pulse 2+ bilaterally. SKIN: Cool and dry. NEUROLOGIC: Nonfocal. LABORATORY DATA: His ECG on admission showed a sinus rhythm, left anterior fascicular block and a right bundle renee block, which was unchanged from previous electrocardiograms. His workup in the Emergency Room; he had a portable chest x-ray that showed normal heart size and clear lung shrestha. His lab work in the Emergency Room; creatinine 1.1. His high sensitivity troponin was 7. BNP 157. His hemoglobin is 15. IMPRESSION AND RECOMMENDATIONS: 1. Chest pain. Atypical for angina. No ECG changes. No evidence of elevated troponin. Suspect noncardiac. If remains pain free, we will consider discharging the patient tomorrow. 2. Previous placement of an abdominal aortic aneurysm stent graft. The patient is followed in the vascular clinic. 3. History of bladder cancer. 4. Hyperlipidemia. The patient is on injections of Repatha. 5. Sleep apnea with previous surgery. 6. Hypertension. The patient is on a beta anahi. 7. History of gastroesophageal reflux. By: 1521 1905Oh Yung MD, FACC /nt
[2021-12-27 14:16] LABS: ABSOLUTE EOSINOPHILS 0.3 thou/uL (0.0-0.7); ABSOLUTE LYMPHOCYTES 0.8 thou/uL (0.8-5.3); ABSOLUTE MONOCYTES 0.6 thou/uL (0.0-1.2); ABSOLUTE NEUTROPHILS 4.3 thou/uL (1.6-8.1); BASOPHILS 0.4 %; EOSINOPHILS 4.9 %; HEMATOCRIT 45.2 % (42.0-52.0); LYMPHOCYTES 13.1 %; MCH 29.7 pg (26.0-34.0); MCHC 33.2 g/dL (28.0-37.0); MCV 89.4 fL (80.0-100.0); MPV 9.6 fl. (7.2-11.1); NUCLEATED RBCS 0 /100WBC; PLATELET COUNT* 135 thou/uL (150-400); POLYS 71.6 %; RBC 5.05 mil/uL (4.50-6.00); WBC 6.1 thou/uL (4.0-11.0)
[2021-12-27 14:22] LABS: CALCIUM 9.1 mg/dL (8.5-10.1); CREATININE 1.1 mg/dL (0.6-1.3); POTASSIUM 4.3 mmol/L (3.5-5.1)
[2021-12-27 14:33] LABS: ALBUMIN 3.7 g/dL (3.4-5.0); MAGNESIUM 2.5 mg/dL (1.8-2.4); TOTAL BILIRUBIN 0.4 mg/dL (<0.1-1.0); TOTAL PROTEIN 7.4 g/dL (6.4-8.2)
--- NOTE | 2021-12-27 15:56 | EKG ---
[place] [address] ELECTROCARDIOGRAM REPORT Name: DAVE BURRELL Room: [facility]#: [id number] Admission: 12/27/21 Attend Phys: Discharge: Date of : 42 Date of Service: 12/27/21 1339 Report #: [id number] THIS REPORT FOR: //name// [facility] ED Test Date: 2021-12-27 Test Time: 13:39:16 Pat Name: DAVE BURRELL Department: Room: Gender: Nurse Epidemiologist: [facility] [place] : 1940 Requested By: Holden Dee Order Number: [id number] MD: Oh Yung Measurements Intervals [place] Rate: 60 P: LA: QRS: -69 QRSD: 131 T: 28 QT: 460 QTc: 460 Interpretive Statements sinus rhythm with short pr interval RBBB and LAFB Compared to ECG 10/31/2021 15:13:16 no change Electronically Signed On 12-27-2021 15:56:24 MILLWRIGHT SUPERVISOR by Oh Yung [email or web address] <ELECTRONICALLY SIGNED> By: Oh Yung MD, [facility] 12/27/21 1556 1339 1339 Oh Yung MD, [facility] /EPI
[2021-12-27 16:54] VITALS: BP 164/71
== END 2021-12-27 16:54 | disposition home or self-care (01) ==
LOC: M.ERS 13:31
PROVIDERS: Emergency Medicine Emergency Medical Services
DX: R07.89 Other chest pain (principal); I10 Essential (primary) hypertension; E78.5 Hyperlipidemia, unspecified; K21.9 Gastro-esophageal reflux disease without esophagitis; Z79.899 Other long term (current) drug therapy; Z88.0 Allergy status to penicillin; Z88.2 Allergy status to sulfonamides; Z88.8 Allergy status to other drugs, medicaments and biological substances

== ENCOUNTER 2022-01-01 04:24 | Emergency (ER) | payer MEDICARE, BC ==
[~2022-01-01] VITALS: Ht 167.6 cm; Wt 63.5 kg
[2022-01-01 05:09] LABS: HEMATOCRIT 43.5 % (42.0-52.0); HEMOGLOBIN 14.3 gm/dL (14.0-18.0); MCH 29.4 pg (26.0-34.0); MCV 89.2 fL (80.0-100.0); NUCLEATED RBCS 0 /100WBC; PLATELET COUNT* 123 thou/uL (150-400); RBC 4.87 mil/uL (4.50-6.00); RDW-CV 13.9 % (10.5-14.5); WBC 5.9 thou/uL (4.0-11.0)
[2022-01-01 05:18] LABS: CALCIUM 8.6 mg/dL (8.5-10.1); CREATININE 1.1 mg/dL (0.6-1.3); POTASSIUM 3.9 mmol/L (3.5-5.1)
[2022-01-01 05:29] LABS: ALBUMIN 3.4 g/dL (3.4-5.0); TOTAL BILIRUBIN 0.8 mg/dL (<0.1-1.0); TOTAL PROTEIN 6.8 g/dL (6.4-8.2)
[2022-01-01 05:52] LABS: PROTIME 9.8 Seconds (9.20-11.50)
[2022-01-01 06:48] VITALS: BP 167/73
[2022-01-01 07:20] LABS: ABSOLUTE BASOPHILS 0.1 thou/uL (0.0-0.2); ABSOLUTE EOSINOPHILS 0.5 thou/uL (0.0-0.7); ABSOLUTE LYMPHOCYTES 1.4 thou/uL (0.8-5.3); ABSOLUTE MONOCYTES 0.4 thou/uL (0.0-1.2); ABSOLUTE NEUTROPHILS 3.5 thou/uL (1.6-8.1); PLATELET ESTIMATE DECREASED
--- NOTE | 2022-01-01 09:15 | EKG ---
[place] [address] ELECTROCARDIOGRAM REPORT Name: INDRADAVE Knight Room: [facility]#: [id number] Admission: 01/01/22 Attend Phys: Discharge: 01/01/22 Date of : 42 Date of Service: 01/01/22 0431 Report #: [id number] THIS REPORT FOR: //name// [facility] ED Test Date: 2022-01-01 Test Time: 04:31:05 Pat Name: DAVE BURRELL Department: Room: Gender: Cork Cutter: [place] : 1940 Requested By: Hailey Valencia Order Number: [id number] MD: Oh Yung Measurements Intervals [place] Rate: 90 P: 71 [place]: 130 QRS: -75 QRSD: 131 T: 76 QT: 399 QTc: 489 Interpretive Statements Sinus rhythm Multiple premature complexes, supraven with abberancy Probable left atrial enlargement RBBB and LAFB Nonspecific T abnormalities, lateral leads Compared to ECG 12/27/2021 13:39:16 T-wave abnormality now present Short IN interval no longer present pac's noted Electronically Signed On 01-01-2022 9:04:05 BABCOCK TESTER by Oh Yung [email or web address] <ELECTRONICALLY SIGNED> By: Oh Yung MD, [facility] 01/01/22 0904 0 0 Oh Yung MD, [facility] /EPI
== END 2022-01-01 06:48 | disposition home or self-care (01) ==
LOC: M.ERS 04:24
PROVIDERS: Personal Emergency Response Attendant
DX: I47.1 Supraventricular tachycardia (principal); I49.3 Ventricular premature depolarization; R11.0 Nausea; I10 Essential (primary) hypertension; E78.5 Hyperlipidemia, unspecified; K21.9 Gastro-esophageal reflux disease without esophagitis; I25.10 Atherosclerotic heart disease of native coronary artery without angina pectoris; Z86.73 Personal history of transient ischemic attack (TIA), and cerebral infarction without residual deficits; Z85.51 Personal history of malignant neoplasm of bladder; Z79.899 Other long term (current) drug therapy; Z88.0 Allergy status to penicillin; Z88.8 Allergy status to other drugs, medicaments and biological substances; Z88.2 Allergy status to sulfonamides; Z88.1 Allergy status to other antibiotic agents